=== PATIENT | female | born 1990 | race Caucasian/White ===

== ENCOUNTER 2019-04-14 17:47 | Emergency (ER) | payer SELFPAY ==
[~2019-04-14] VITALS: Ht 154.9 cm; Wt 64.0 kg
[2019-04-14 17:51] VITALS: Ht 154.9 cm; Wt 64.0 kg
[2019-04-14 19:35] VITALS: BP 122/81
== END 2019-04-14 19:35 | disposition home or self-care (01) ==
LOC: ED 17:47
DX: S16.1XXA Strain of muscle, fascia and tendon at neck level, initial encounter (principal); M25.511 Pain in right shoulder; V48.6XXA Car passenger injured in noncollision transport accident in traffic accident, initial encounter; Y93.89 Activity, other specified; Y92.488 Other paved roadways as the place of occurrence of the external cause; Y99.8 Other external cause status
CPT/HCPCS: J1885

== ENCOUNTER 2020-03-20 21:47 | Emergency (ER) | payer SELFPAY ==
[~2020-03-20] VITALS: Ht 154.9 cm; Wt 60.3 kg
[2020-03-20 22:21] VITALS: BP 122/69; Ht 154.9 cm; Wt 60.3 kg
== END 2020-03-20 22:45 | disposition home or self-care (01) ==
LOC: ED 21:47
DX: N39.0 Urinary tract infection, site not specified (principal)